=== PATIENT | male | born 1960 | race Caucasian/White ===

== ENCOUNTER 2024-05-02 08:46 | Day surgery (SDC) | payer BC ==
[~2024-05-02] VITALS: Ht 170.2 cm; Wt 77.1 kg
[2024-05-02 11:33] VITALS: O2SAT 97
[2024-05-02] MEDS: fentaNYL CITRATE/PF 100 MCG/2 ML AMP ONE (11:47)
[2024-05-02] MEDS: MIDAZOLAM HCL 5 MG/5 ML VIAL ONE (11:47)
[2024-05-02 16:13] VITALS: BP_SYST 115; PULSE 61; RESP 17
== END 2024-05-02 13:05 | disposition home or self-care (01) ==
LOC: SDS 08:46 → SMU 08:47 → SDS 13:05
PROVIDERS: ATTEND Internal Medicine
DX: R19.4 Change in bowel habit (principal); D12.3 Benign neoplasm of transverse colon; K64.8 Other hemorrhoids; Z87.891 Personal history of nicotine dependence
CPT/HCPCS: 45385; 88305; 99152; G0378; J2250; J3010